=== PATIENT | female | born 1990 | race Two or more races ===

== ENCOUNTER 2018-02-04 19:24 | Emergency (ER) | payer OTHER ==
[~2018-02-04] VITALS: Ht 149.9 cm; Wt 69.4 kg
[2018-02-04 19:34] VITALS: BP 124/87
[2018-02-05] MEDS ORDERED: TETANUS-DIPTH-ACEL PERTUSSIS 0.5ML SYRG IM ONE (00:15)
[2018-02-05] MEDS ORDERED: cefTRIAXone SOD 1,000 MG VL IM ONE (00:45)
== END 2018-02-05 00:55 | disposition home or self-care (01) ==
LOC: ER 19:29
DX: S60.512A Abrasion of left hand, initial encounter (principal); W64.XXXA Exposure to other animate mechanical forces, initial encounter; Y93.89 Activity, other specified; Y99.8 Other external cause status; Y92.89 Other specified places as the place of occurrence of the external cause
CPT/HCPCS: 90471; 90715; 96372; 99284; J0696